=== PATIENT | female | born 1950 | race Caucasian/White ===

== ENCOUNTER 2023-06-24 17:26 | Outpatient (REF) | payer MEDICARE, MEDICAID, SELFPAY ==
[2023-06-24 18:19] LABS: Basophils Absolute Auto 0.1 10^3/uL (0.0-0.1); Basophils Percent Auto 0.5 % (0.2-2.0); Eosinophils Absolute Auto 0.2 10^3/uL (0.0-0.7); Eosinophils Percent Auto 1.7 % (0.9-7.0); Hematocrit 38.7 % (36.0-48.0); Hemoglobin 11.6 g/dL (12.0-16.0); Immature Granulocytes Pct Auto 1.1 % (0.0-0.5); Lymphocytes Absolute Auto 1.2 10^3/uL (1.2-3.8); Lymphocytes Percent Auto 13.3 % (20.5-60.0); Mean Corpuscular Hemoglobin 26.2 pg (26.7-34.0); Mean Corpuscular Volume 87.4 fL (81.0-99.0); Mean Platelet Volume 10.7 fL (9.5-13.5); Monocytes Absolute Auto 0.8 10^3/uL (0.3-0.8); Monocytes Percent Auto 8.5 % (1.7-12.0); Neutrophils Percent Auto 74.9 % (43.0-75.0); Platelet Count 339 10^3/uL (150-450); Red Blood Count 4.43 10^6/uL (4.20-5.40); Red Cell Distribution Width 16.1 % (11.0-15.0); White Blood Count 9.3 10^3/uL (4.0-11.0)
== END 2023-06-24 17:27 | disposition home or self-care (01) ==
LOC: LAB 17:26
DX: D64.9 Anemia, unspecified (principal)
CPT/HCPCS: 36415; 85025